=== PATIENT | male | born 1975 | race Two or more races ===

== ENCOUNTER → 2016-08-12 | Outpatient (CLI) | payer OTHER ==
[~2016-08-12] MED LIST: ALLO10TA PO; CARA1TAB2 PO; CITRSOL8 PO; FOLI1TAB86 PO; INDO75CA PO; INSULANT SC; INSURSD SC; LISI5TAB PO; METH40VIAL IM; OMEP40CA2 PO; PERC7.5T12 PO; PRED20TA OR; PRIN10TA PO; VITA100T92 PO; VITMTA PO
--- NOTE | 2016-08-12 12:17 | REP ---
LEFT KNEE, SIX VIEWS: HISTORY: Injury. There is no acute fracture or dislocation. The joint spaces are normal in appearance. IMPRESSION: There is no acute fracture or dislocation. Signed by Gab James MD 08/12/2016 12:20 P
== END ==
LOC: M LRY 10:54
PROVIDERS: ATTEND Nurse Practitioner Family
DX: S89.92XA Unspecified injury of left lower leg, initial encounter (principal); X58.XXXA Exposure to other specified factors, initial encounter; Y92.89 Other specified places as the place of occurrence of the external cause; Y93.89 Activity, other specified; Y99.8 Other external cause status
CPT/HCPCS: 73564; G0463